=== PATIENT | male | born 1970 | race Caucasian/White ===

== ENCOUNTER → 2017-06-08 | Outpatient (CLI) | payer BC ==
[~2017-06-08] VITALS: Ht 177.8 cm; Wt 104.3 kg
== END ==
LOC: PREOP 06:07
PROVIDERS: ATTEND Surgery
DX: Z01.818 Encounter for other preprocedural examination (principal); K62.5 Hemorrhage of anus and rectum

== ENCOUNTER 2017-06-15 08:16 | Day surgery (SDC) | payer BC ==
[~2017-06-15] VITALS: Ht 177.8 cm; Wt 99.8 kg
[2017-06-15] MEDS ORDERED: NS IV 500 ML 500 ML IV ONE (08:30)
[2017-06-15 08:46] VITALS: BP 165/87
[2017-06-15] MEDS ORDERED: fentaNYL INJECTION 100 MCG/2 ML AMP ONE (10:03)
[2017-06-15] MEDS ORDERED: MIDAZOLAM 2 MG/2 ML (VERSED) VIAL ONE ×4 (10:03→10:25)
--- NOTE | 2017-06-15 10:04 | History & Physicial ---
History of Present Illness History of Present Illness Reason for visit/HPI to undergo colonoscopy regarding intermittent rectal bleeding. Family history of polyps in his father. Date of Admission 06/15/17 Date Seen by Provider: Jun 15, 2017 Time Seen by Provider: 10:03 I consulted on this patient on 06/15/17 10:02 Attending Physician Vinicio Porras MD Admitting Physician Polo Clayton MD Consult Allergies and Home Medications Allergies Coded Allergies: No Known Drug Allergies (Unverified , 06/08/17) Home Medications No Active Prescriptions or Reported Meds Patient Home Medication List Home Medication List Reviewed: Yes Past Ippckgr-Keicjt-Mslhwn Hx Patient Social History Marrital Status: Employed/Student: employed Alcohol Use: Occasionally Uses Recreational Drug Use: No Smoking Status: Never a Smoker Recent Foreign Travel: No Contact w/other who traveled: No Recent Hopitalizations: No Recent Infectious Disease Expo: No Seasonal Allergies Seasonal Allergies: No Surgeries Yes Appendectomy Respiratory No Cardiovascular No Neurological No Reproductive System Hx Reproductive Disorders: No Sexually Transmitted Disease: No HIV/AIDS: No Gastrointestinal Gastrointestinal Bleed Musculoskeletal No Endocrine History of Endocrine Disorders: No HEENT Loss of Vision: Bilateral Hearing Impairment: Denies Integumentary Skin/Integumentary Disorders: Eczema Blood Transfusions Adverse Reaction to a Blood Tr: No Constitutional: no symptoms reported EENTM: no symptoms reported Respiratory: no symptoms reported Cardiovascular: no symptoms reported Gastrointestinal: see HPI Genitourinary: no symptoms reported Musculoskeletal: no symptoms reported Skin: no symptoms reported Psychiatric/Neurological: No Symptoms Reported Physical Exam Vital Signs Vital Signs - First Documented 06/15/17 08:46 Temp 97.5 Pulse 73 Resp 18 B/P (MAP) 165/87 (113) Pulse Ox 97 O2 Delivery Room Air Capillary Refill : General Appearance: No Apparent Distress Neck: Normal Inspection Respiratory: Lungs Clear Cardiovascular: Regular Rate, Rhythm Gastrointestinal: Non Tender, Soft Rectal: Deferred Extremity: Normal Inspection Neurologic/Psychiatric: Alert, Oriented x3 Skin: Warm/Dry Assessment/Plan Assessment and Plan gentleman with a history of intermittent rectal bleeding and a family history of polyps. For colonoscopy Problems: Admission Diagnosis Admission Status: Other (Outpt Proc) VINICIO PORRAS MD Jun 15, 2017 10:04 am
--- NOTE | 2017-06-15 10:05 | Conscious Sedation/ASA ---
Conscious Sedation Pre-Proced Time Reviewed: 10:04 ASA Class: 1 Airway Mallampati Classification: (asa'[place] appropriate class) I. II. III, IV Lungs Heart ASA score ASA 1: a normal healthy patient ASA 2: a patient with a mild systemic disease (mid diabetes, controlled hypertension, obesity ASA 3: a patient with a severe systemic disease that limits activity (angina , COPD, prior Myocardial infarction) ASA 4: a patient with an incapacitating disease that is a constant threat to life (CHF, renal failure) ASA 5: a moribund patient not expected to survive 24 hrs. (ruptured aneurysm) ASA 6: a declared brain patient whose organs are being harvested. For emergent operations, add the letter E after the classification Grade 1 Sedation Plan: Discussed options with patient/fam Note The patient is an appropriate candidate to undergo the planned procedure, sedation, and anesthesia. The patient immediately re-assessed prior to indication. VINICIO PORRAS MD Jun 15, 2017 10:04 am
[2017-06-15] MEDS: fentaNYL INJECTION 100 MCG/2 ML AMP IVP PRN ×2 (10:15→10:25)
[2017-06-15] MEDS: MIDAZOLAM 2 MG/2 ML (VERSED) VIAL IVP PRN ×4 (10:17→10:28)
--- NOTE | 2017-06-15 10:41 | Endo Procedure Record ---
Endo Procedure Report Date of Procedure Last Colonoscopy: No Jun 15, 2017 Surgeon (s) VINICIO PORRAS MD Post Procedure/Op Diagnosis Mild degree of internal hemorrhoids. Minimal diverticulosis Procedure Performed Colonoscopy to cecum Description of Procedure Anesthesia Type: Conscious Sedation Specimen(s) collected/removed none Description of the Procedure Indication for the procedure: This gentleman came in for colonoscopy to evaluate intermittent rectal bleeding. He reported a family history of polyps in his father. Informed consent was obtained after reviewing the procedure in detail. Description of procedure: He was placed in left lateral decubitus position and his vital signs were monitored. Conscious sedation was achieved using Versed and fentanyl. Examination of the perianal area revealed skin tags and a mild degree of external hemorrhoids. The colonoscope was then introduced into the rectum and advanced all the way up to the cecum. The scope was then withdrawn slowly and the mucosa examined in a systematic fashion. Findings: Internal hemorrhoids, the source of his bleeding. Very few diverticulae. He tolerated the procedure well and was taken back to the nursing area in a stable condition. Impression: Rectal bleeding due to hemorrhoids. Recommend conservative management. Family history of polyps and therefore screening colonoscopy in 5 years would be reasonable. Copies To: LUIS MAYER MD, XAVIER M MD Jun 15, 2017 10:41 am
--- NOTE | 2017-06-15 10:42 | Discharge Inst-Simple/Standard ---
Discharge Inst-Standard Discharge Medications New, Converted or Re-Newed RX: Other Patient Instructions/Follow Up Plan of Care/Instructions/FU: Stool softeners to avoid constipation Activity as Tolerated: Yes Discharge Diet: No Restrictions VINICIO PORRAS MD Jun 15, 2017 10:42 am
[2017-06-15 10:55] VITALS: BP 135/80
[2017-06-15 11:25] VITALS: BP 134/83
[2017-06-15 11:40] VITALS: BP 134/83
== END 2017-06-15 11:40 | disposition home or self-care (01) ==
LOC: ENDO 08:16
PROVIDERS: ATTEND Surgery
DX: K64.8 Other hemorrhoids (principal); K57.30 Diverticulosis of large intestine without perforation or abscess without bleeding; Z83.71 Family history of colonic polyps

== ENCOUNTER → 2019-01-11 | Outpatient (CLI) | payer BC ==
[~2019-01-11] VITALS: Ht 177 cm; Wt 111.0 kg
[~2019-01-11] MED LIST: CATHETER FLUSH 10 ML SYR IV PRN
[2019-01-11 09:41] VITALS: BP 165/81
[2019-01-11 09:47] VITALS: BP 233/89
--- NOTE | 2019-01-11 17:50 | STRESS TEST ---
DATE OF SERVICE: 01/11/2019 RESTING AND POST EXERCISE TECHNETIUM-99M TETROFOSMIN SPECT CT IMAGING Baseline images were carried out after injection of 10.53 mCi of technetium-99m Tetrofosmin. This was followed by exercise on a treadmill. Kenneth protocol was employed. Heart rate response to exercise was normal. Blood pressure response to exercise was hypertensive. Some isolated and coupled premature ventricular contractions were seen on this study. There was no ventricular tachycardia. There was no ventricular tachycardia. After the patient had attained 85% of maximum predicted heart rate, 30.9 mCi of technetium-99m Tetrofosmin were injected and the exercise was continued for more than another minute. The patient attained 11.7 METs of workload and exercised for a total of 10 minutes in the Kenneth protocol. Test was stopped on account of fatigue. Review of images at rest and following exercise does not indicate significant perfusion defects consistent with myocardial ischemia or infarction. Gated images show normal global left ventricular systolic function with normal regional wall motion. Left ventricular ejection fraction is calculated to be 67%. Left ventricular end diastolic volume is 72 mL. TID is absent (0.99). CONCLUSIONS: 1. No evidence of any significant myocardial ischemia or infarction on this study. 2. Normal regional wall motion. 3. Normal global left ventricular systolic function with a calculated ejection fraction of 67%. Job ID: [id number] DocumentID: [id number] Dictated Date: 01/11/2019 14:33:45 [employer] Date: 01/11/2019 17:49:48 Dictated By: VALENTINO FRANZ MD, MA, FACP, FACC,
== END ==
LOC: CARD 08:08
PROVIDERS: ATTEND Internal Medicine Cardiovascular Disease
DX: I51.7 Cardiomegaly (principal); E78.5 Hyperlipidemia, unspecified; I10 Essential (primary) hypertension; E66.9 Obesity, unspecified
CPT/HCPCS: 78452; 93017; 93306